=== PATIENT | female | born 1960 | race Caucasian/White ===

== ENCOUNTER → 2016-10-10 | Outpatient (CLI) | payer BC | LOC: BMCIMAGING 10:09 | DX: Z12.31 Encounter for screening mammogram for malignant neoplasm of breast (principal) | CPT/HCPCS: G0202 ==

== ENCOUNTER → 2017-10-23 | Outpatient (CLI) | payer BC | LOC: BMCIMAGING 08:38 | PROVIDERS: ATTEND Internal Medicine | DX: Z12.31 Encounter for screening mammogram for malignant neoplasm of breast (principal) ==

== ENCOUNTER → 2017-11-02 | Outpatient (CLI) | payer BC | LOC: BMCIMAGING 10:18 | PROVIDERS: ATTEND Internal Medicine | DX: R92.8 Other abnormal and inconclusive findings on diagnostic imaging of breast (principal) ==

== ENCOUNTER → 2018-11-30 | Outpatient (CLI) | payer BC | LOC: BMCIMAGING 08:06 ==